=== PATIENT | female | born 1985 | race Caucasian/White ===

== ENCOUNTER 2022-12-20 22:08 | Emergency (ER) | payer OTHER ==
[~2022-12-20] VITALS: Ht 162.5 cm; Wt 84.0 kg
[~2022-12-20 22:08] MED LIST: NITR100C3 PO; PHEN37.555 PO
--- NOTE | 2022-12-20 22:13 | ED General ---
General Stated Complaint: FEVER/CHILLS/NAUSEA/SORE THROAT/HEADACHE Source of Information: Patient Exam Limitations: No Limitations (HOLGER MONSON MD) History of Present Illness Date Seen by Provider: Dec 20, 2022 Time Seen by Provider: 22:13 (HOLGER MONSON MD) Initial Comments This is a well-appearing 37-year-old female who presented to the ER with complaints of fever of 103F at home, chills, sore throat, headache, nausea since yesterday. 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 Tested negative with home COVID test. States she was brought here by her boyfriend to be checked out. Eating and drinking well. (ARIEL HUSSEIN APRN) Allergies and Home Medications Allergies Coded Allergies: No Known Drug Allergies (Unverified , 08/26/12) Patient Home Medication List Home Medication List Reviewed: Yes (HOLGER MONSON MD) Home Medication List Reviewed: Yes (ARIEL HUSSEIN APRN) Review of Systems Review of Systems Constitutional: chills, fever, malaise EENTM: throat pain; No ear discharge, No dental problems, No nose congestion Respiratory: no symptoms reported Cardiovascular: no symptoms reported Gastrointestinal: No abdominal pain; nausea; No vomiting Musculoskeletal: no symptoms reported Skin: no symptoms reported Psychiatric/Neurological: No Symptoms Reported Hematologic/Lymphatic: No Symptoms Reported (ARIEL HUSSEIN APRN) Past Bnuwvio-Pvehts-Ndcpph Hx Past Medical History Reproductive Disorders: No Sexually Transmitted Disease: No (HOLGER MONSON MD) Physical Exam Vital Signs Vital Signs - First Documented 12/20/22 22:23 Temp 38.2 Pulse 106 Resp 18 B/P (MAP) 130/86 (101) (ARIEL HUSSEIN APRN) Vital Signs Capillary Refill : (HOLGER MONSON MD) Height, Weight, BMI Height: 5'6" Weight: 155lbs. oz. 70.672135rx; BMI Method:Stated (HOLGER MONSON MD) General Appearance: No Apparent Distress, WD/WN Eyes: Bilateral Eye Normal Inspection, Bilateral Eye PERRL, Bilateral Eye EOMI HEENT: PERRL/EOMI, TMs Normal, Normal ENT Inspection, Moist Mucous Membranes, Pharyngeal Erythema, Other (uvula midline ) Neck: Full Range of Motion, Normal Inspection, Non Tender, Supple Respiratory: Lungs Clear, Normal Breath Sounds, No Accessory Muscle Use, No Respiratory Distress Cardiovascular: Regular Rate, Rhythm, No Edema, No Murmur Gastrointestinal: Normal Bowel Sounds, Non Tender, Soft Extremity: Normal Capillary Refill, Normal Inspection, Normal Range of Motion Neurologic/Psychiatric: Alert, Oriented x3, No Motor/Sensory Deficits, Normal Mood/Affect, estimation manager II-XII Norm as Tested Skin: Normal Color, Warm/Dry Lymphatic: Other (cervical adenopathy, tender) (ARIEL HUSSEIN APRN) Progress/Results/Core Measures Suspected Sepsis SIRS Temperature: Pulse: Respiratory Rate: Blood Pressure / Mean: (HOLGER MONSON MD) Results/Orders Lab Results Laboratory Tests Test 12/20/22 22:28 12/20/22 23:00 Range/Units Group A Streptococcus Screen NEGATIVE NEGATIVE Influenza Type A (RT-PCR) Not Detected Not Detecte Influenza Type B (RT-PCR) Not Detected Not Detecte SARS-CoV-2 RNA (RT-PCR) Not Detected Not Detecte (ARIEL HUSSEIN APRN) Micro Results Microbiology 12/20/22 Throat Culture - Final, Complete No Beta Strep isolated (ARIEL HUSSEIN APRN) My Orders Orders - ARIEL HUSSEIN APRN Ibuprofen Tablet (Motrin Tablet) (12/20/22 22:30) Rapid Strep A Screen (12/20/22 22:35) Covid 19 Inhouse Test (12/20/22 22:55) Influenza A And B By Pcr (12/20/22 22:55) (ARIEL HUSSEIN APRN) Medications Given in ED (ARIEL HUSSEIN APRN) Vital Signs/I&O 12/20/22 12/20/22 22:23 23:54 Temp 38.2 37.6 Pulse 106 Resp 18 B/P (MAP) 130/86 (101) (ARIEL HUSSEIN APRN) Vital Signs/I&O Capillary Refill : (HOLGER MONSON MD) Progress Note : Progress Note Patient examined no acute distress. Vital signs stable. Has not taken anything for fever or comfort prior to arrival. Will obtain strep swab and give ibuprofen 600mg PO. No significant tonsillar enlargement or deviation of uvula to suggest peritonsillar abscess. Had a negative home COVID test will defer at this time and start with rapid strep screen as Group A strep is prevalent in the community at this time. Group A strep negative at this time we will go ahead and test for COVID and FLU. COVID, FLU negative. Discussed this is likely viral pharyngitis and reviewed supportive measures. She is agreeable with discharge POC. May follow up with PCP or return if symptoms worsen. (ARIEL HUSSEIN APRN) ECG Initial ECG Impression Date: Dec 20, 2022 (ARIEL HUSSEIN APRN) Departure Impression Primary Impression: Acute viral pharyngitis Disposition: HOME, SELF-CARE Condition: Stable Departure-Patient Inst. Decision time for Depature: 23:13 (ARIEL HUSSEIN WELDER OPERATOR) Referrals: OPHELIA AGUIRRE MD (PCP/Family) Primary Care Physician Patient Instructions: Fever, Adult (DC) Add. Discharge Instructions: Plan: 1. Rest. Stay home until you are fever free for 24 hours. 2. Tylenol and Ibuprofen as needed for pain/fever per package. 3. Push fluids to stay hydrated, may eat ice or Popsicle's which may be soothing to throat. 4. Follow up with PCP for any persistent symptoms. 5. Return to ER if you are unable to tolerate liquids, any new, concerning, or worsening symptoms. Work/School Note: Family Work Note, Patient Received Medical Care In the Emergency Department On: Dec 20, 2022 Patient Will Be Able to Return to Work/School On: Dec 21, 2022 Work Release Form Date Seen in the Emergency Department: Dec 20, 2022 Return to Work: Dec 22, 2022 Restrictions: Return-No Fever (24hrs) HOLGER MONSON MD Dec 20, 2022 22:13 ARIEL HUSSEIN APRN Dec 20, 2022 22:30
[2022-12-20 22:23] VITALS: BP 130/86
[2022-12-20] MEDS ORDERED: IBUPROFEN 600 MG (MOTRIN) TAB PO ONE (22:30)
== END 2022-12-20 23:55 | disposition home or self-care (01) ==
LOC: EDUNIT# 22:08 → ER 22:11
DX: J02.8 Acute pharyngitis due to other specified organisms (principal); B97.89 Other viral agents as the cause of diseases classified elsewhere; Z20.822 Contact with and (suspected) exposure to COVID-19
CPT/HCPCS: 87430; 87636; 99283

== ENCOUNTER 2022-12-23 11:57 | Emergency (ER) | payer OTHER ==
[~2022-12-23] VITALS: Ht 162 cm; Wt 81.6 kg
--- NOTE | 2022-12-23 12:44 | ED EENT ---
History of Present Illness General Chief Complaint: Oral/Throat Problems Stated Complaint: SORE THROAT - CHILLS- HEADACHE Nursing Triage Note: PT C/O SORE THROAT WITH PAIN RADIATING TO LEFT EAR AND NECK X 5 DAYS. PT SEEN SATURDAY FOR SAME. Source: patient Exam Limitations: no limitations History of Present Illness Date Seen by Provider: Dec 23, 2022 Time Seen by Provider: 12:31 Initial Comments 37-year-old female presents to the ED with complaints of sore throat since Saturday. She states she was seen here on and was tested for COVID, flu, strep which were negative. She was told that she has a viral pharyngitis. She states she came back because her throat pain is worse. Reports pain with swallowing and difficulty swallowing. She states she did have a fever on of 104. Yesterday she reports a low-grade temperature of 99. Denies chest pain, shortness of air, abdominal pain, diarrhea. Reports mild cough and nausea, as well as body aches. Past medical history includes nodules on her thyroid, she does not take any medications. Allergies and Home Medications Allergies Coded Allergies: No Known Drug Allergies (Unverified , 08/26/12) Patient Home Medication List Home Medication List Reviewed: Yes Review of Systems Review of Systems Constitutional: see HPI Past Sjpflft-Lwboom-Vsrdsf Hx Patient Social History Tobacco Use?: No Substance use?: No Alcohol Use?: No Pt feels they are or have been: No Immunizations Up To Date Influenza Vaccine Up-to-Date: Yes; Up-to-Date Past Medical History Last Menstrual Period: Dec 22, 2022 Reproductive Disorders: No Sexually Transmitted Disease: No Physical Exam Vital Signs Vital Signs - First Documented 12/23/22 12:06 Temp 37.0 Pulse 88 Resp 20 B/P (MAP) 118/87 (97) Pulse Ox 99 O2 Delivery Room Air Height, Weight, BMI Height: 5'6" Weight: 155lbs. oz. [id number]; 31.00 BMI Method:Stated General Appearance: WD/WN, no apparent distress Ears: left ear other (Painful); bilateral ear TM dull Mouth/Throat: No tonsillar exudate; tonsillar swelling (2+ tonsillar swelling); No trismus, No uvula swelling (Uvula midline), No voice changes; other (Erythemic tonsils) Neck: supple, normal inspection Cardiovascular: regular rate, rhythm, no edema, no gallop, no JVD, no murmur Respiratory: lungs clear, normal breath sounds, no respiratory distress, no accessory muscle use Neurologic/Psychiatric: alert, normal mood/affect Skin: normal color, warm/dry Progress/Results/Core Measures Results/Orders Lab Results Laboratory Tests Test 12/23/22 13:05 Range/Units Monoscreen NEGATIVE NEGATIVE My Orders Orders - ROWAN SOTOMAYOR APRN Ed Iv/Invasive Line Start (12/23/22 12:38) Ns Iv 1000 Ml (Sodium Chloride 0.9%) (12/23/22 12:45) Dexamethasone Injection (Decadron Inje (12/23/22 12:45) Monotest (12/23/22 12:38) Rachelle Sparks Virus Profile (12/23/22 12:38) Medications Given in ED Current Medications Medications Dose Ordered Sig/Al Route Start Time Stop Time Status Last Admin Dose Admin Dexamethasone Sodium Phosphate 8 mg ONCE ONCE IV 12/23/22 12:45 12/23/22 12:46 DC 12/23/22 13:08 8 MG Vital Signs/I&O 12/23/22 12/23/22 12:06 14:20 Temp 37.0 36.0 Pulse 88 72 Resp 20 18 B/P (MAP) 118/87 (97) 99/69 Pulse Ox 99 98 O2 Delivery Room Air Room Air Blood Pressure Mean: 97 Progress Progress Note : Time: 12:43 Progress Note Patient seen and evaluated, resting comfortably in recliner, no acute distress. Based on exam and symptoms, will test for mono and do an Rachelle-Sparks panel. Patient had negative COVID, flu, rapid strep, and throat culture on . We will also give IV fluids and Decadron. 1336 Monospot negative. Rachelle-Sparks is a send out, and will not result today. Results discussed with patient. Informed her this is likely a viral pharyngitis, it could take a week or two before her throat begins to feel better. We will let her finish IV fluids. Patient instructed to take Tylenol and ibuprofen as needed for pain, use throat lozenges, salt water gargles, and to drink plenty of water. Discharge directions and return precautions provided. Departure Impression Primary Impression: Acute viral pharyngitis Disposition: HOME, SELF-CARE Condition: Stable Departure-Patient Inst. Referrals: NO,LOCAL PHYSICIAN (PCP/Family) Primary Care Physician Patient Instructions: Viral Pharyngitis (DC) Add. Discharge Instructions: Follow-up with primary care provider. Do warm salt water gargles, use throat lozenges, or throat spray. Take 800 mg of ibuprofen every 8 hours with food as needed for pain. You may also take 1000 mg of Tylenol every 8 hours as needed for pain. Drink plenty of noncaffeinated, low sugar beverages. Return for severe pain, inability to swallow, voice changes, tongue swelling, recurrent vomiting, or any other new, concerning, worsening symptoms. All discharge instructions reviewed with patient and/or family. Voiced understanding. ROWAN SOTOMAYOR PURCHASING ASSISTANT Dec 23, 2022 12:44
[2022-12-23] MEDS ORDERED: NS IV 1000 ML 1,000 ML IV SCH (12:45)
[2022-12-23 14:20] VITALS: BP 99/69
== END 2022-12-23 14:22 | disposition home or self-care (01) ==
LOC: EDUNIT# 11:57 → ER 11:58
DX: J02.9 Acute pharyngitis, unspecified (principal)
CPT/HCPCS: 36415; 86308; 86663; 86664; 86665

== ENCOUNTER → 2022-12-28 | Outpatient (CLI) | payer OTHER ==
[~2022-12-28] VITALS: Ht 162.6 cm; Wt 81.8 kg
[~2022-12-28] MED LIST changes: +LIDOCAINE 1% INJ 10 ML VIAL INJ ONE; +LIDOCAINE 1% INJ 10 ML VIAL ONE
--- NOTE | 2022-12-28 12:07 | Diagnostic Imaging Report ---
INDICATION: Left thyroid nodule. Patient presents for ultrasound guided fine needle aspiration. Patient brought to the procedure room placed on table in supine position. Ultrasound imaging of the left neck was performed to evaluate appropriate entry site. Left neck was then prepped and draped in usual sterile fashion. Small amount of 1% lidocaine was utilized for local anesthesia. A total of 5 passes were made into the dominant solid nodule with microtest stations in the left lobe of thyroid utilizing 25-gauge needles and fine-needle aspiration technique. Hemostasis was obtained. Patient tolerated the procedure well and left the department in stable condition. IMPRESSION: Successful ultrasound-guided fine-needle aspiration of the dominant left lobe thyroid nodule. Pathology results are currently pending. Dictated by: Dictated on workstation # [id number]
== END ==
LOC: RAD 08:55
PROVIDERS: ATTEND Nurse Practitioner Family
DX: E04.1 Nontoxic single thyroid nodule (principal)